=== PATIENT | male | born 1970 | race Caucasian/White ===

== ENCOUNTER 2017-08-19 09:13 | Day surgery (SDC) | payer OTHER ==
[2017-08-19] VITALS (19 sets, daily range): BP systolic 124–173; BP diastolic 62–111
[~2017-08-19] VITALS: Ht 182.9 cm; Wt 117.5 kg
[2017-08-19 09:49] LABS: BASOPHILS % (AUTO) 0.4 % (0-1); EOSINOPHILS # (AUTO) 0.1 X10'3 (0-0.9); EOSINOPHILS % (AUTO) 3.1 % (0-6); LYMPHOCYTES # (AUTO) 1.4 X10'3 (1.1-4.8); LYMPHOCYTES % (AUTO) 36.3 % (21-51); MEAN CORPUSCULAR HEMOGLOBIN 30.1 PG (27.0-31.0); MEAN CORPUSCULAR HGB CONC 33.4 % (33.0-36.5); MEAN CORPUSCULAR VOLUME 90.3 FL (78-98); MEAN PLATELET VOLUME 8.3 FL (7.4-10.4); MONOCYTES # (AUTO) 0.3 X10'3 (0-0.9); MONOCYTES % (AUTO) 7.7 % (2-12); NEUTROPHILS # (AUTO) 1.9 X10'3 (1.8-7.7); NEUTROPHILS % (AUTO) 52.5 % (42-75); PRE OP HEMATOCRIT 46.1 % (42.0-52.0); PRE OP HEMOGLOBIN 15.4 g/dL (14.0-17.9); PRE OP PLATELET COUNT 185 X10'3 (140-440); RED BLOOD COUNT 5.11 X10'6 (4.70-6.10); RED CELL DISTRIBUTION WIDTH 12.3 % (11.5-14.5)
[2017-08-19] MEDS ORDERED: ceFAZolin 2gm in dextrose, iso 100 ML IV ONE (09:51)
[2017-08-19] MEDS ORDERED: ringers solution, lacted 1,000 ML IV SCH ×2 (09:52→16:10)
[2017-08-19] MEDS ORDERED: famotidine 20mg tablet PO ONE (09:52)
[2017-08-19] MEDS ORDERED: LIDOcaine 1% (10mg/ml) 2ml vial ONE (10:00)
[2017-08-19 10:01] LABS: ALBUMIN 3.9 G/DL (3.4-5.0); ALBUMIN/GLOBULIN RATIO 1.2 (1.1-1.5); ALKALINE PHOSPHATASE 63 IU/L (46-116); BLOOD UREA NITROGEN 15 MG/DL (7-18); BUN/CREATININE RATIO 14.7 (5.4-32.0); CHLORIDE 106 MMOL/L (99-107); CREATININE 1.02 MG/DL (0.60-1.10); PRE OP ALT 52 U/L (30-65); PRE OP ANION GAP 8 (8-16); PRE OP AST 25 U/L (10-37); PRE OP BILIRUB, TOTAL 0.5 MG/DL (0.0-1.0); PRE OP GLUCOSE 103 MG/DL (70-104); PRE OP POTASSIUM 4.2 MMOL/L (3.4-5.1); PRE OP SODIUM 140 MMOL/L (135-145); TOTAL CARBON DIOXIDE 26.3 MMOL/L (24-32); TOTAL PROTEIN 7.1 G/DL (6.4-8.2); eGFR 79 ML/MIN
[2017-08-19] MEDS ORDERED: NO HOME MEDS (10:02)
[2017-08-19] MEDS ORDERED: methylene blue (5mg/ml) 50mg/10ml ampul IV ONE (14:01)
[2017-08-19] MEDS ORDERED: BUPIVAcaine/PF 7.5mg/ml (0.75%) 10ml vial ONE ×2 (14:01→15:49)
[2017-08-19] MEDS ORDERED: fentaNYL/PF 50MCG/1 ML 2ML syringe ONE ×2 (15:14→15:54)
[2017-08-19] MEDS ORDERED: midazolam 2 mg/2 ml injection ONE (15:15)
[2017-08-19] MEDS ORDERED: LIDOcaine 2% (20mg/ml) 5ml vial ONE (15:16)
[2017-08-19] MEDS ORDERED: propofol inj 20 ML IV ONE (15:16)
[2017-08-19] MEDS ORDERED: ondansetron/PF 4mg/2ml inj IV PRN (16:10)
[2017-08-19] MEDS ORDERED: ondansetron/PF 4mg/2ml inj ONE (16:16)
[2017-08-19] MEDS: fentaNYL/PF 50MCG/1 ML 2ML syringe IV PRN ×4 (16:48→17:08)
[2017-08-19] MEDS ORDERED: HYDROcodone/acetaminophen 10/325mg tab PO ONE (17:00)
[2017-08-19] MEDS ORDERED: ketorolac trometh. 30mg/ml inj. IV ONE (17:25)
[2017-08-19] MEDS ORDERED: meperidine/PF 25mg/ml syringe ONE (17:49)
[2017-08-19] MEDS ORDERED: meperidine/PF 25mg/ml syringe IV ONE (17:55)
[2017-08-19] MEDS ORDERED: HYDROmorphone 1 mg/ml syringe ONE (17:58)
[2017-08-19] MEDS ORDERED: HYDROmorphone 1 mg/ml syringe IV ONE (18:00)
== END 2017-08-19 19:30 | disposition home or self-care (01) ==
LOC: PAS 09:13
PROVIDERS: ATTEND Surgery
DX: K60.0 Acute anal fissure (principal); K64.4 Residual hemorrhoidal skin tags; K64.8 Other hemorrhoids; Z98.890 Other specified postprocedural states
CPT/HCPCS: 36415; 46200; 46947; 46999; 80053; 85025; 93005; A6224; A6449; J0690; J1170; J1885; J2001; J2175; J2250; J2405; J2704; J3010; J3490; J7120; A7000

== ENCOUNTER 2017-08-29 20:09 | Emergency (ER) | payer OTHER ==
[~2017-08-29] VITALS: Ht 182.9 cm; Wt 114.2 kg
[~2017-08-29 20:09] MED LIST: NO HOME MEDS
[2017-08-29] MEDS ORDERED: normal saline 1000ML IV soln IV ONE (20:20)
[2017-08-29] MEDS ORDERED: iohexol 300mg/ml 100ml inj. ONE (20:35)
[2017-08-29] MEDS ORDERED: normal saline 1000ml 1,000 ML IV ONE (20:35)
[2017-08-29] MEDS ORDERED: ondansetron/PF 4mg/2ml inj IV ONE (20:35)
[2017-08-29] MEDS ORDERED: morphine 4 MG/ML inj SYRINge IV ONE (20:35)
[2017-08-29 21:31] LABS: BASOPHILS % (AUTO) 0.1 % (0-1); EOSINOPHILS # (AUTO) 0.1 X10'3 (0-0.9); EOSINOPHILS % (AUTO) 0.7 % (0-6); HEMATOCRIT 37.7 % (42.0-52.0); HEMOGLOBIN 13.3 g/dl (14.0-17.9); LYMPHOCYTES # (AUTO) 1.4 X10'3 (1.1-4.8); LYMPHOCYTES % (AUTO) 15.4 % (21-51); MEAN CORPUSCULAR HEMOGLOBIN 31.8 PG (27.0-31.0); MEAN CORPUSCULAR HGB CONC 35.3 % (33.0-36.5); MEAN CORPUSCULAR VOLUME 90.1 FL (78-98); MEAN PLATELET VOLUME 8.2 FL (7.4-10.4); MONOCYTES # (AUTO) 0.9 X10'3 (0-0.9); MONOCYTES % (AUTO) 9.1 % (2-12); NEUTROPHILS % (AUTO) 74.7 % (42-75); PLATELET COUNT 252 X10'3 (140-440); RED BLOOD COUNT 4.19 X10'6 (4.70-6.10); RED CELL DISTRIBUTION WIDTH 12.7 % (11.5-14.5); WHITE BLOOD COUNT 9.4 X10'3 (4.5-11.0)
[2017-08-29] MEDS ORDERED: LIDOcaine Viscous 15ml cup MM ONE (21:40)
[2017-08-29] MEDS ORDERED: fentaNYL/PF 50MCG/1 ML 2ML syringe IV ONE (21:40)
[2017-08-29 21:42] LABS: PARTIAL THROMBOPLASTIN TIME 30 SECONDS (22-32); PROTHROMBIN TIME 10.1 SECONDS (9.0-12.0)
[2017-08-29 21:55] LABS: ALANINE AMINOTRANSFERASE 69 U/L (12-78); ALBUMIN 3.7 G/DL (3.4-5.0); ALBUMIN/GLOBULIN RATIO 1.1 (1.1-1.5); ALKALINE PHOSPHATASE 88 IU/L (46-116); ANION GAP 10 (8-16); ASPARTATE AMINO TRANSFERASE 24 U/L (10-37); BILIRUBIN,TOTAL 0.6 MG/DL (0.1-1.0); BLOOD UREA NITROGEN 10 MG/DL (7-18); BUN/CREATININE RATIO 8.4 (5.4-32.0); CALCIUM 8.8 MG/DL (8.5-10.1); CHLORIDE 108 MMOL/L (99-107); CREATININE 1.19 MG/DL (0.60-1.10); GLUCOSE 96 MG/DL (70-104); MAGNESIUM 2.2 MG/DL (1.5-2.4); POTASSIUM 3.7 MMOL/L (3.5-5.1); SODIUM 143 MMOL/L (135-145); TOTAL CARBON DIOXIDE 25.3 MMOL/L (24-32); TOTAL PROTEIN 7.2 G/DL (6.4-8.2); eGFR 66 ML/MIN
[2017-08-29] MEDS ORDERED: LIDO15CR11 TOP (22:06)
[2017-08-29] MEDS ORDERED: HYDR-3965 PO (22:06)
[2017-08-29 22:53] VITALS: BP 128/57
== END 2017-08-29 22:54 | disposition home or self-care (01) ==
LOC: ER 20:10
DX: T81.89XA Other complications of procedures, not elsewhere classified, initial encounter (principal); K62.89 Other specified diseases of anus and rectum; Z79.899 Other long term (current) drug therapy; Y83.8 Other surgical procedures as the cause of abnormal reaction of the patient, or of later complication, without mention of misadventure at the time of the procedure; Y92.89 Other specified places as the place of occurrence of the external cause
CPT/HCPCS: 36415; 74177; 80053; 83605; 83735; 84145; 85025; 85610; 85730; 87040; 93005; 96374; 96375; 99285; J2270; J2405; J3010; J7030; Q9967

== ENCOUNTER 2018-01-13 10:56 | Day surgery (SDC) | payer OTHER ==
[2018-01-09 13:30] LABS: BASOPHILS % (AUTO) 0.4 % (0-1); EOSINOPHILS # (AUTO) 0.1 X10'3 (0-0.9); EOSINOPHILS % (AUTO) 2.2 % (0-6); LYMPHOCYTES # (AUTO) 1.1 X10'3 (1.1-4.8); MEAN CORPUSCULAR HEMOGLOBIN 29.6 PG (27.0-31.0); MEAN CORPUSCULAR HGB CONC 33.7 % (33.0-36.5); MEAN CORPUSCULAR VOLUME 87.9 FL (78-98); MEAN PLATELET VOLUME 8.9 FL (7.4-10.4); MONOCYTES # (AUTO) 0.3 X10'3 (0-0.9); NEUTROPHILS # (AUTO) 3.3 X10'3 (1.8-7.7); NEUTROPHILS % (AUTO) 68.4 % (42-75); PRE OP HEMATOCRIT 46.8 % (42.0-52.0); PRE OP HEMOGLOBIN 15.8 g/dL (14.0-17.9); PRE OP PLATELET COUNT 214 X10'3 (140-440); RED BLOOD COUNT 5.33 X10'6 (4.70-6.10); RED CELL DISTRIBUTION WIDTH 13.6 % (11.5-14.5)
[2018-01-09 13:36] LABS: CLARITY,URINE CLEAR (Clear); COLOR,URINE YELLOW (Yellow); GLUCOSE, URINE NEGATIVE (Neg); KETONES,URINE NEGATIVE (Neg); LEUKOCYTE ESTERASE ,URINE NEGATIVE (Neg); NITRITES, URINE NEGATIVE (Neg); OCCULT BLOOD,URINE NEGATIVE (Neg); PROTEIN,URINE NEGATIVE (Neg); UROBILINOGEN,URINE 0.2 E.U/dL (0.2-1.0)
[2018-01-09 13:42] LABS: UA COLLECTION TYPE NON-SPECIFIED
[2018-01-09 13:46] LABS: ALBUMIN/GLOBULIN RATIO 1.3 (1.1-1.5); ALKALINE PHOSPHATASE 82 IU/L (46-116); BLOOD UREA NITROGEN 14 MG/DL (7-18); BUN/CREATININE RATIO 13.9 (5.4-32.0); CHLORIDE 105 MMOL/L (99-107); CREATININE 1.01 MG/DL (0.60-1.10); PRE OP ANION GAP 11 (8-16); PRE OP BILIRUB, TOTAL 0.5 MG/DL (0.0-1.0); PRE OP SODIUM 142 MMOL/L (135-145); TOTAL CARBON DIOXIDE 25.7 MMOL/L (24-32); TOTAL PROTEIN 7.2 G/DL (6.4-8.2); eGFR 80 ML/MIN
[2018-01-09 14:29] LABS: PRE OP GLUCOSE 109 MG/DL (70-104); PRE OP POTASSIUM 3.9 MMOL/L (3.4-5.1)
[2018-01-09 14:30] LABS: PRE OP AST 58 U/L (10-37)
[2018-01-09 14:31] LABS: PRE OP ALT 135 U/L (30-65)
[~2018-01-13] VITALS: Ht 182.9 cm; Wt 107.0 kg
[2018-01-13] VITALS (12 sets, daily range): BP systolic 101–137; BP diastolic 66–84
[~2018-01-13 10:56] MED LIST changes: +CYCL-1 PO; +METR500T4 PO; -NO HOME MEDS; +cefazolin/dext.iso 2gm/100 ML IV ONE; +famotidine 20mg tablet PO ONE; +meperidine/PF 25mg/ml syringe IV PRN; +morphine 4 MG/ML inj SYRINge IV PRN; +ondansetron/PF 4mg/2ml inj IV PRN; +proCHLORperazine 10 MG/2 ml inj IV PRN; +ringers solution, lacted 1,000 ML IV SCH
[2018-01-13 12:50] LABS: BILIRUBIN,DIRECT 0.1 MG/DL (0-0.3); BILIRUBIN,TOTAL 0.6 MG/DL (0.1-1.0); TOTAL PROTEIN 7.1 G/DL (6.4-8.2)
[2018-01-13 12:51] LABS: ALANINE AMINOTRANSFERASE 128 U/L (12-78); ALBUMIN 3.9 G/DL (3.4-5.0); ALBUMIN/GLOBULIN RATIO 1.2 (1.1-1.5); ALKALINE PHOSPHATASE 82 IU/L (46-116); ASPARTATE AMINO TRANSFERASE 50 U/L (10-37)
[2018-01-13] MEDS ORDERED: BUPIVAcaine/PF 2.5mg/ml (0.25%) 10ml vial ONE (13:30)
[2018-01-13] MEDS ORDERED: LIDOcaine 1% 30ml preserv. free vial ONE (13:30)
[2018-01-13] MEDS ORDERED: methylene blue (5mg/ml) 50mg/10ml ampul IV ONE (13:30)
[2018-01-13] MEDS ORDERED: sevoflurane 250ml liquid IH ONE (13:37)
[2018-01-13] MEDS ORDERED: dexamethasone sod phosphate 10mg/ml inj ONE (13:37)
[2018-01-13] MEDS ORDERED: midazolam 2 mg/2 ml injection ONE (13:39)
[2018-01-13] MEDS ORDERED: fentaNYL/PF 50MCG/1 ML 2ML syringe ONE (13:39)
[2018-01-13] MEDS ORDERED: propofol inj 20 ML IV ONE (13:39)
[2018-01-13] MEDS ORDERED: LIDOcaine 2% (20mg/ml) 5ml vial ONE (13:41)
[2018-01-13] MEDS ORDERED: acetaminophen 1,000mg/100ml IV 100 ML IV ONE (14:11)
[2018-01-13] MEDS ORDERED: ketorolac trometh. 30mg/ml inj. ONE (14:15)
[2018-01-13] MEDS ORDERED: ondansetron/PF 4mg/2ml inj ONE (14:15)
[2018-01-13] MEDS ORDERED: HYDROcodone/acetaminophen 10/325mg tab PO ONE (16:00)
== END 2018-01-13 16:20 | disposition home or self-care (01) ==
LOC: PAS 10:56
PROVIDERS: ATTEND Surgery
DX: D12.9 Benign neoplasm of anus and anal canal (principal); K60.3 Anal fistula; Z98.890 Other specified postprocedural states; Z79.899 Other long term (current) drug therapy
CPT/HCPCS: 36415; 46280; 80053; 80076; 81003; 85025; 85610; 85730; A6224; A6266; A6449; J0131; J0690; J1100; J1885; J2001; J2175; J2250; J2405; J2704; J3010; J3490; A7000; J7120